=== PATIENT | male | born 1960 | race Caucasian/White ===

== ENCOUNTER 2017-09-15 11:16 | Day surgery (SDC) | payer MEDICARE, OTHER ==
[2017-09-15] MEDS ORDERED: FENTAnyl 50 MCG/ML VIAL (13:22)
[2017-09-15] MEDS ORDERED: MIDAZOLAM 1 MG/ML 2 ML INJ (13:22)
[2017-09-15] MEDS ORDERED: PROPOFOL 20 ML (13:22)
== END 2017-09-15 14:34 | disposition home or self-care (01) ==
LOC: GIL 11:16
DX: Z12.11 Encounter for screening for malignant neoplasm of colon (principal); K62.1 Rectal polyp; D12.2 Benign neoplasm of ascending colon; K64.8 Other hemorrhoids; E11.9 Type 2 diabetes mellitus without complications; I10 Essential (primary) hypertension
CPT/HCPCS: 45380; 82962; 88305